=== PATIENT | female | born 1985 | race Two or more races ===

== ENCOUNTER 2023-08-08 19:32 | Inpatient (IN) | payer MEDICAID ==
[~2023-08-08] VITALS: Ht 167.6 cm; Wt 113.4 kg
[2023-08-08 22:00] VITALS: BP 160/98; TEMP 98.8; O2SAT 96
[2023-08-08] MEDS ORDERED: Z GUARD REMEDY 4 OZ OINT TP PRN (23:00)
[2023-08-08] MEDS ORDERED: ONDANSETRON HCL/PF 4 MG/2 ML VIAL IVP PRN (23:00)
[2023-08-08] MEDS ORDERED: MAGNESIUM HYDROXIDE 30 ML UDC PO PRN (23:00)
[2023-08-08] MEDS ORDERED: MAG HYDROX/AL HYDROX/SIMETH 30 ML UDC PO PRN (23:00)
[2023-08-09] VITALS (7 sets, daily range): BP systolic 151–171; BP diastolic 80–101; TEMP 97.9–99.3; O2SAT 96–100
[2023-08-09] MEDS: CEFAZOLIN 1 GM in IV D5W 50 ML IV SCH (01:45)
[2023-08-09] MEDS: ACETAMINOPHEN 325 MG TABLET PO PRN (02:02)
[2023-08-09] MEDS: hydrALAZINE HCL 25 MG TABLET PO PRN (04:57)
[2023-08-09 07:24] LABS: BASOPHILS % (AUTO) 0.3 % (0.0-2.0); EOSINOPHILS # (AUTO) 0.3 K/uL (0.0-0.7); EOSINOPHILS % (AUTO) 2.9 % (0.0-6.0); HEMATOCRIT 32 % (33-45); HEMOGLOBIN 11.1 g/dL (11.5-14.8); LYMPHOCYTES # (AUTO) 1.7 K/uL (0.8-4.8); LYMPHOCYTES % (AUTO) 15.7 % (20.0-44.0); MEAN CORPUSCULAR HEMOGLOBIN 31 PG (26.0-33.0); MEAN CORPUSCULAR HGB CONC 34 g/dl (31.0-36.0); MEAN CORPUSCULAR VOLUME 89 fL (82-100); MONOCYTES # (AUTO) 0.9 K/uL (0.1-1.30); MONOCYTES % (AUTO) 8.2 % (2.0-12.0); NEUTROPHILS # (AUTO) 8.1 K/uL (1.8-8.9); NEUTROPHILS % (AUTO) 72.9 % (43.0-81.0); PLATELET COUNT (AUTO) 359 K/uL (150-450); RED BLOOD CELL COUNT(AUTO) 3.63 MIL/uL (4.0-5.2); RED CELL DISTRIBUTION WIDTH 14.1 % (11.5-15.0); WHITE BLOOD COUNT (AUTO) 11.1 K/uL (4.3-11.0)
[2023-08-09 07:29] LABS: CALCIUM, SERUM 8.4 mg/dL (8.5-10.1); CREATININE 0.8 mg/dL (0.6-1.3); MAGNESIUM 2.3 mg/dL (1.8-2.4); PHOSPHORUS 4.1 mg/dL (2.5-4.9); POTASSIUM 3.7 mmol/L (3.5-5.1)
[2023-08-09 07:35] LABS: THYROID STIMULATING HORMONE 3.34 uIU/mL (0.358-3.74)
[2023-08-09] MEDS ORDERED: HYDR-3972 PO (08:31)
[2023-08-09] MEDS ORDERED: ASPI-1420 PO (08:31)
[2023-08-09] MEDS ORDERED: METO50TA16 PO (08:31)
[2023-08-09] MEDS: ASPIRIN 81 MG TAB.CHEW PO SCH (08:37)
[2023-08-09] MEDS: METOPROLOL TARTRATE 50 MG TABLET PO SCH (17:06)
[2023-08-09] MEDS: VANCOMYCIN HCL 1.25 GM in IV D5W 250 ML IV ONE (20:52)
[2023-08-09] MEDS: VANCOMYCIN 750 MG in IV D5W 250 ML IV ONE (22:18)
[2023-08-09] MEDS: HYDROCODONE/APAP 5/325MG TABLET PO PRN (22:55)
[2023-08-10 00:15] VITALS: BP 166/96; TEMP 98.6; O2SAT 99
[2023-08-10] MEDS: ZOLPIDEM TARTRATE 5 MG TABLET PO PRN (00:23)
[2023-08-10] MEDS: VANCOMYCIN 1 GM in IV D5W 250ml IV SCH (03:11)
[2023-08-10 05:20] VITALS: BP 152/89; TEMP 98.2; O2SAT 99
[2023-08-10 07:52] LABS: BASOPHILS % (AUTO) 0.5 % (0.0-2.0); EOSINOPHILS # (AUTO) 0.4 K/uL (0.0-0.7); EOSINOPHILS % (AUTO) 3.6 % (0.0-6.0); HEMATOCRIT 34 % (33-45); HEMOGLOBIN 11.5 g/dL (11.5-14.8); LYMPHOCYTES # (AUTO) 1.4 K/uL (0.8-4.8); LYMPHOCYTES % (AUTO) 13.7 % (20.0-44.0); MEAN CORPUSCULAR HEMOGLOBIN 30 PG (26.0-33.0); MEAN CORPUSCULAR HGB CONC 34 g/dl (31.0-36.0); MEAN CORPUSCULAR VOLUME 89 fL (82-100); MONOCYTES # (AUTO) 0.8 K/uL (0.1-1.30); MONOCYTES % (AUTO) 7.5 % (2.0-12.0); NEUTROPHILS # (AUTO) 7.6 K/uL (1.8-8.9); NEUTROPHILS % (AUTO) 74.7 % (43.0-81.0); PLATELET COUNT (AUTO) 381 K/uL (150-450); RED CELL DISTRIBUTION WIDTH 14.1 % (11.5-15.0); WHITE BLOOD COUNT (AUTO) 10.1 K/uL (4.3-11.0)
[2023-08-10 08:00] VITALS: BP 164/105; TEMP 98.8; O2SAT 99
[2023-08-10 08:34] LABS: CALCIUM, SERUM 8.9 mg/dL (8.5-10.1); POTASSIUM 3.7 mmol/L (3.5-5.1)
[2023-08-10 08:43] LABS: CREATININE 0.9 mg/dL (0.6-1.3)
[2023-08-10] MEDS ORDERED: ASPIRIN EC 81 MG TABLET.DR PO SCH (09:00)
[2023-08-10 12:00] VITALS: BP 164/105; TEMP 98.8; O2SAT 99
[2023-08-10 16:00] VITALS: BP 152/88; TEMP 99.1; O2SAT 99
[2023-08-10 20:00] VITALS: BP 151/91; TEMP 98; O2SAT 98
[2023-08-10] MEDS: CEFEPIME 2 GM in IV D5W 100 ML IV SCH (21:38)
[2023-08-11 04:00] VITALS: BP 145/91; TEMP 97.9; O2SAT 96
[2023-08-11 08:00] VITALS: BP 141/87; TEMP 98.4; O2SAT 100
[2023-08-11 16:00] VITALS: BP 147/77; TEMP 99; O2SAT 96
[2023-08-12] VITALS: BP 165/92; TEMP 98.4; O2SAT 98
[2023-08-12 03:25] LABS: CALCIUM, SERUM 8.8 mg/dL (8.5-10.1); CREATININE 0.9 mg/dL (0.6-1.3); POTASSIUM 3.7 mmol/L (3.5-5.1)
[2023-08-12 07:13] LABS: APPEARANCE,URINE CLOUDY (CLEAR); BILIRUBIN,URINE NEGATIVE (NEGATIVE); BLOOD, URINE NEGATIVE Ery/uL (NEGATIVE); COLOR,URINE YELLOW (YELLOW); KETONES,URINE NEGATIVE (NEGATIVE); LEUKOCYTE ESTERASE ,URINE NEGATIVE (NEGATIVE); NITRITE, URINE NEGATIVE (NEGATIVE); PROTEIN,URINE NEGATIVE (NEGATIVE); UGLUCOSE NEGATIVE (NEGATIVE); UROBILINOGEN,URINE 0.2 EU/dL (0.2)
[2023-08-12 07:19] LABS: ADD URINE CULTURE YES; BACTERIA,URINE Rare /HPF (None Seen); SQUAMOUS EPITHELIAL CELL,UR Moderate /HPF (None Seen)
[2023-08-12 08:00] VITALS: BP 164/95; TEMP 98.4; O2SAT 97
[2023-08-12 16:00] VITALS: BP 155/88; TEMP 98.1; O2SAT 97
[2023-08-12] MEDS: LIDOCAINE 5% OINT 35.44 GM TUBE TP SCH (18:08)
[2023-08-12 22:00] VITALS: BP 151/80; TEMP 98.1; O2SAT 100
[2023-08-13] VITALS (7 sets, daily range): BP systolic 142–174; BP diastolic 79–96; TEMP 98–99; O2SAT 98–100
[2023-08-13 07:44] LABS: CALCIUM, SERUM 8.8 mg/dL (8.5-10.1); CREATININE 0.7 mg/dL (0.6-1.3); POTASSIUM 3.7 mmol/L (3.5-5.1)
[2023-08-13 14:08] LABS: PREGNANCY TEST URINE QUAL NEGATIVE (NEGATIVE)
[2023-08-14 04:00] VITALS: BP 147/87; TEMP 99.5; O2SAT 100
[2023-08-14 08:00] VITALS: BP_SYST 168; BP_DIAS 104; BP_DIAS 94; TEMP 98.2; O2SAT 100
[2023-08-14 08:29] LABS: CALCIUM, SERUM 8.6 mg/dL (8.5-10.1); CREATININE 0.9 mg/dL (0.6-1.3); POTASSIUM 4.1 mmol/L (3.5-5.1)
[2023-08-14] MEDS: ENOXAPARIN SODIUM 40 MG/0.4 ML DISP.SYRIN SQ SCH (08:36)
[2023-08-14 16:00] VITALS: BP 148/97; TEMP 98.4; O2SAT 95
[2023-08-15] VITALS: BP 154/90; TEMP 98.5; O2SAT 95
[2023-08-15] MEDS: VANCOMYCIN 1 GM in IV D5W 250ml IV SCH (04:36)
[2023-08-15 07:19] LABS: CALCIUM, SERUM 8.1 mg/dL (8.5-10.1); CREATININE 0.9 mg/dL (0.6-1.3); POTASSIUM 3.6 mmol/L (3.5-5.1)
[2023-08-15 08:00] VITALS: BP 158/87; TEMP 98.5; O2SAT 98
[2023-08-15 16:00] VITALS: BP 146/92; TEMP 97.7; O2SAT 98
[2023-08-15 16:44] VITALS: BP 152/87; TEMP 99.1; O2SAT 97
[2023-08-15] MEDS: PIPERACILLIN /TAZOBACTAM 3.375 G in IV D5W 50 ML IV SCH (17:57)
[2023-08-15] MEDS ORDERED: ZOSYN IVPB 3.375 G in IV D5W 50ml IV SCH (18:00)
[2023-08-15 20:00] VITALS: BP 163/88; TEMP 98.6; O2SAT 100
[2023-08-16 04:00] VITALS: BP 163/105; TEMP 97.7; O2SAT 100
[2023-08-16 07:42] LABS: CREATININE 0.9 mg/dL (0.6-1.3); POTASSIUM 3.5 mmol/L (3.5-5.1)
[2023-08-16 08:00] VITALS: BP 132/81; TEMP 98.7; O2SAT 98
[2023-08-16] MEDS ORDERED: TRIAMCINOLONE ACETONIDE 0.025% 15 GM TUBE TP PRN ×2 (15:30→16:00)
[2023-08-16 16:00] VITALS: BP 154/90; TEMP 98.2; O2SAT 98
[2023-08-16 20:00] VITALS: BP 143/83; TEMP 97.9; O2SAT 97
[2023-08-16] MEDS: MUPIROCIN OINT 2% 22 GM TUBE TP SCH (20:46)
[2023-08-17 05:00] VITALS: BP 133/93; TEMP 97.5; O2SAT 99
[2023-08-17 07:43] LABS: CALCIUM, SERUM 9.3 mg/dL (8.5-10.1); CREATININE 0.9 mg/dL (0.6-1.3); POTASSIUM 3.7 mmol/L (3.5-5.1)
[2023-08-17 08:00] VITALS: BP 157/82; TEMP 97.7; O2SAT 100
[2023-08-17 11:21] LABS: BASOPHILS # (AUTO) 0.1 K/uL (0.0-0.2); BASOPHILS % (AUTO) 0.7 % (0.0-2.0); EOSINOPHILS # (AUTO) 0.4 K/uL (0.0-0.7); EOSINOPHILS % (AUTO) 5.1 % (0.0-6.0); HEMATOCRIT 33 % (33-45); HEMOGLOBIN 11.2 g/dL (11.5-14.8); LYMPHOCYTES # (AUTO) 1.4 K/uL (0.8-4.8); LYMPHOCYTES % (AUTO) 17.2 % (20.0-44.0); MEAN CORPUSCULAR HEMOGLOBIN 30 PG (26.0-33.0); MEAN CORPUSCULAR HGB CONC 34 g/dl (31.0-36.0); MEAN CORPUSCULAR VOLUME 88 fL (82-100); MONOCYTES # (AUTO) 0.7 K/uL (0.1-1.30); MONOCYTES % (AUTO) 8.6 % (2.0-12.0); NEUTROPHILS # (AUTO) 5.6 K/uL (1.8-8.9); NEUTROPHILS % (AUTO) 68.4 % (43.0-81.0); PLATELET COUNT (AUTO) 451 K/uL (150-450); RED BLOOD CELL COUNT(AUTO) 3.76 MIL/uL (4.0-5.2); RED CELL DISTRIBUTION WIDTH 13.8 % (11.5-15.0); WHITE BLOOD COUNT (AUTO) 8.2 K/uL (4.3-11.0)
[2023-08-17 11:30] LABS: CALCIUM, SERUM 9.4 mg/dL (8.5-10.1); CREATININE 0.8 mg/dL (0.6-1.3); POTASSIUM 3.4 mmol/L (3.5-5.1)
[2023-08-17 16:00] VITALS: BP 151/95; TEMP 97.8; O2SAT 100
[2023-08-17 20:00] VITALS: BP 136/84; TEMP 98.3; O2SAT 98
[2023-08-18 04:00] VITALS: BP 144/86; TEMP 98.7; O2SAT 98
[2023-08-18 08:00] VITALS: BP 155/87; TEMP 98.4; O2SAT 99
[2023-08-18 16:00] VITALS: BP 180/92; TEMP 97.9; O2SAT 99
[2023-08-18] MEDS: LOSARTAN POTASSIUM 50 MG TABLET PO SCH (18:38)
[2023-08-18 20:00] VITALS: BP 153/87; TEMP 98.1; O2SAT 98
[2023-08-19 04:00] VITALS: BP 124/80; TEMP 98.4; O2SAT 97
[2023-08-19 08:00] VITALS: BP 143/88; TEMP 98.6; O2SAT 97
[2023-08-19] MEDS ORDERED: LOSARTAN POTASSIUM 50 MG TABLET PO SCH (09:00)
[2023-08-19 16:00] VITALS: BP 154/93; TEMP 98.1; O2SAT 97
[2023-08-19 20:00] VITALS: BP 154/82; TEMP 98.1; O2SAT 99
[2023-08-20 04:00] VITALS: BP 160/87; TEMP 98.5; O2SAT 96
[2023-08-20 08:00] VITALS: BP 161/92; TEMP 98.2; O2SAT 98
[2023-08-20 16:00] VITALS: BP 150/83; TEMP 97.9; O2SAT 96
[2023-08-20 20:00] VITALS: BP 152/88; TEMP 98.3; O2SAT 96
[2023-08-21 04:00] VITALS: BP 147/77; TEMP 98.5; O2SAT 96
[2023-08-21 08:13] VITALS: BP 148/87; TEMP 98.5; O2SAT 96
[2023-08-21 16:02] VITALS: BP 150/83; TEMP 97.9; O2SAT 96
[2023-08-21 20:00] VITALS: BP 156/92; TEMP 98; O2SAT 99
[2023-08-22 04:00] VITALS: BP 145/69; TEMP 97.9; O2SAT 99
[2023-08-22 08:00] VITALS: BP 148/79; TEMP 98.1; O2SAT 99
[2023-08-22] MEDS ORDERED: BUPIVACAINE 0.5 % PF 150 MG/30 ML VIAL ONE (10:06)
[2023-08-22] MEDS ORDERED: LIDOCAINE HCL/MPF 1% 30 ML VIAL IJ ONE (10:06)
[2023-08-22] MEDS ORDERED: ANESTHESIA TRAY IN PYXIS 1 EA TRAY MC ONE (10:06)
[2023-08-22] MEDS: PIPERACILLIN /TAZOBACTAM 3.375 G in IV D5W 100 ML IV SCH (12:06)
[2023-08-22] MEDS ORDERED: FENTANYL PF 100MCG/2ML AMPUL ONE (13:22)
[2023-08-22] MEDS ORDERED: MIDAZOLAM HCL 2 MG/2ML VIAL ONE (13:22)
[2023-08-22] MEDS ORDERED: FAMOTIDINE/PF INJ 20 MG/2 ML VIAL IV ONE (13:23)
[2023-08-22] MEDS ORDERED: POLYMYXIN B SULFATE 500,000 UNITS ONE (13:46)
[2023-08-22] MEDS ORDERED: ACETAMINOPHEN 325 MG TABLET ONE (14:19)
[2023-08-22 16:00] VITALS: BP 134/80; TEMP 98.6; O2SAT 99
[2023-08-22 20:00] VITALS: BP 134/80; TEMP 98.6; O2SAT 99
[2023-08-23 04:36] VITALS: BP 158/96; TEMP 98; O2SAT 100
[2023-08-23 08:00] VITALS: BP 157/79; TEMP 97.8; O2SAT 99
[2023-08-23 16:00] VITALS: BP 133/82; TEMP 98.4; O2SAT 96
[2023-08-23 20:00] VITALS: BP 129/77; TEMP 97.9; O2SAT 97
[2023-08-24 04:00] VITALS: BP 148/74; TEMP 97.9; O2SAT 97
[2023-08-24 07:51] LABS: BASOPHILS # (AUTO) 0.1 K/uL (0.0-0.2); EOSINOPHILS # (AUTO) 0.3 K/uL (0.0-0.7); HEMATOCRIT 34 % (33-45); MEAN CORPUSCULAR HGB CONC 34 g/dl (31.0-36.0); MEAN CORPUSCULAR VOLUME 88 fL (82-100)
[2023-08-24 08:35] LABS: HEMOGLOBIN 11.3 g/dL (11.5-14.8); RED BLOOD CELL COUNT(AUTO) 3.84 MIL/uL (4.0-5.2); WHITE BLOOD COUNT (AUTO) 10.2 K/uL (4.3-11.0)
[2023-08-24 08:36] LABS: BASOPHILS % (AUTO) 0.9 % (0.0-2.0); EOSINOPHILS % (AUTO) 2.9 % (0.0-6.0); LYMPHOCYTES # (AUTO) 3.2 K/uL (0.8-4.8); LYMPHOCYTES % (AUTO) 31.6 % (20.0-44.0); MEAN CORPUSCULAR HEMOGLOBIN 29 PG (26.0-33.0); MONOCYTES # (AUTO) 0.8 K/uL (0.1-1.30); MONOCYTES % (AUTO) 8.1 % (2.0-12.0); NEUTROPHILS # (AUTO) 5.8 K/uL (1.8-8.9); NEUTROPHILS % (AUTO) 56.5 % (43.0-81.0); PLATELET COUNT (AUTO) 474 K/uL (150-450); RED CELL DISTRIBUTION WIDTH 14.5 % (11.5-15.0)
[2023-08-24 10:45] LABS: CALCIUM, SERUM 8.5 mg/dL (8.5-10.1); CREATININE 1.1 mg/dL (0.6-1.3); POTASSIUM 4.1 mmol/L (3.5-5.1)
[2023-08-24] MEDS ORDERED: PIPE3.379 IV (11:15)
[2023-08-24] MEDS ORDERED: LIDO35.4 TP (11:15)
[2023-08-24] MEDS ORDERED: TRIA15CR3 TP (11:15)
[2023-08-24] MEDS ORDERED: MUPI22OI7 TP (11:15)
[2023-08-24] MEDS ORDERED: LOSA50TA39 PO (11:15)
[2023-08-24 12:00] VITALS: BP 134/73; TEMP 97.7; O2SAT 96
[2023-08-24 16:47] VITALS: BP 134/73
== END 2023-08-24 19:11 | disposition home health service (06) | DRG 720 ==
LOC: TELE1 21:00 → MEDSG1 08-10 16:41
PROVIDERS: ADMIT Student in an Organized Health Care Education/Training Program; ATTEND Nurse Practitioner Acute Care
PROC: 05HB33Z Insertion of Infusion Device into Right Basilic Vein, Percutaneous Approach (ICD-10-PCS; 2023-08-13)
PROC: 0JBP0ZZ Excision of Left Lower Leg Subcutaneous Tissue and Fascia, Open Approach (ICD-10-PCS; principal; 2023-08-16)
PROC: 0JBP0ZZ Excision of Left Lower Leg Subcutaneous Tissue and Fascia, Open Approach (ICD-10-PCS; 2023-08-22)
DX: A41.9 Sepsis, unspecified organism (principal); I24.89 Other forms of acute ischemic heart disease; T82.898A Other specified complication of vascular prosthetic devices, implants and grafts, initial encounter; E87.1 Hypo-osmolality and hyponatremia; I80.8 Phlebitis and thrombophlebitis of other sites; S80.12XA Contusion of left lower leg, initial encounter; I16.1 Hypertensive emergency; L03.116 Cellulitis of left lower limb; V86.55XA Driver of 3- or 4- wheeled all-terrain vehicle (ATV) injured in nontraffic accident, initial encounter; Y92.9 Unspecified place or not applicable; B96.5 Pseudomonas (aeruginosa) (mallei) (pseudomallei) as the cause of diseases classified elsewhere; B95.2 Enterococcus as the cause of diseases classified elsewhere; I25.10 Atherosclerotic heart disease of native coronary artery without angina pectoris; I25.2 Old myocardial infarction; Z68.41 Body mass index [BMI] 40.0-44.9, adult; E66.9 Obesity, unspecified; Z79.82 Long term (current) use of aspirin; Z79.899 Other long term (current) drug therapy; L97.323 Non-pressure chronic ulcer of left ankle with necrosis of muscle; I10 Essential (primary) hypertension; Y84.8 Other medical procedures as the cause of abnormal reaction of the patient, or of later complication, without mention of misadventure at the time of the procedure; Y92.239 Unspecified place in hospital as the place of occurrence of the external cause
CPT/HCPCS: 36410; 36415; 73718-TC; 80048-TC; 80061-TC; 80202-TC; 81001; 83605-TC; 83735-TC; 84100-TC; 84443-TC; 84484-TC; 84703-TC; 85025-TC; 85652-TC; 86140-TC; 87040-TC; 87081-TC; 87086-TC; 93971-TC; 97110-TC; 97116-TC; 97530-TC; A4223; A6209; A6253; A6403; A6407; G0378; J0690; J0692; J1100; J1650; J2250; J2405; J2543; J2704; J2765; J3010; J3370; J3371; J3490; J7030; J7040; J7050; J7060

== ENCOUNTER 2023-08-25 21:32 | Emergency (ER) | payer MEDICAID ==
[~2023-08-25 21:32] MED LIST: ASPI-1420 PO; HYDR-3972 PO; LIDO35.4 TP; LOSA50TA39 PO; METO50TA16 PO; MUPI22OI7 TP; PIPE3.379 IV; TRIA15CR3 TP
== END 2023-08-26 02:19 | disposition home or self-care (01) ==
LOC: ER 21:37
DX: T82.898A Other specified complication of vascular prosthetic devices, implants and grafts, initial encounter (principal); Y84.8 Other medical procedures as the cause of abnormal reaction of the patient, or of later complication, without mention of misadventure at the time of the procedure; Y92.89 Other specified places as the place of occurrence of the external cause

== ENCOUNTER 2023-08-26 10:49 | Emergency (ER) | payer MEDICAID ==
[~2023-08-26] VITALS: Ht 167.6 cm; Wt 93.0 kg
[2023-08-26 12:46] VITALS: BP 165/94; TEMP 98.6; O2SAT 99
== END 2023-08-26 12:46 | disposition home or self-care (01) ==
LOC: ER 10:53
DX: T82.898A Other specified complication of vascular prosthetic devices, implants and grafts, initial encounter (principal); L03.116 Cellulitis of left lower limb; Y84.8 Other medical procedures as the cause of abnormal reaction of the patient, or of later complication, without mention of misadventure at the time of the procedure; Y92.89 Other specified places as the place of occurrence of the external cause
CPT/HCPCS: 36410